=== PATIENT | female | born 1965 | race Caucasian/White ===

== ENCOUNTER 2020-11-13 07:44 | Outpatient (CLI) | payer BC | END 2020-11-13 07:45 | disposition home or self-care (01) | LOC: ULT 07:44 | PROVIDERS: ATTEND Physician Assistant | DX: R10.31 Right lower quadrant pain (principal); K92.1 Melena; K76.0 Fatty (change of) liver, not elsewhere classified | CPT/HCPCS: 76700 ==

== ENCOUNTER 2020-11-21 11:48 | Outpatient (CLI) | payer BC | END 2020-11-21 11:49 | disposition home or self-care (01) | LOC: BICMAMMO 11:48 | PROVIDERS: ATTEND Physician Assistant | DX: Z12.31 Encounter for screening mammogram for malignant neoplasm of breast (principal); Z80.3 Family history of malignant neoplasm of breast | CPT/HCPCS: 77063; 77067 ==

== ENCOUNTER 2024-10-19 09:32 | Outpatient (CLI) | payer OTHER | END 2024-10-19 09:33 | disposition home or self-care (01) | LOC: BICMAMMO 09:32 | PROVIDERS: ATTEND Family Medicine | DX: Z12.31 Encounter for screening mammogram for malignant neoplasm of breast (principal); Z80.3 Family history of malignant neoplasm of breast; Z85.850 Personal history of malignant neoplasm of thyroid | CPT/HCPCS: 77063; 77067 ==